=== PATIENT | male | born 1985 | race Caucasian/White ===

== ENCOUNTER 2023-04-12 11:23 | Outpatient (REF) | payer SELFPAY ==
[2023-04-12 14:13] LABS: Alanine Aminotransferase 35 U/L (0-40); Albumin Level 4.5 g/dL (3.5-5.0); Alkaline Phosphatase 77 U/L (39-117); Anion Gap 17 (12-20); Aspartate Amino Transferase 42 U/L (5-37); Bilirubin Total 0.6 mg/dL (0.0-1.0); Blood Urea Nitrogen 9 mg/dL (9-16); Calcium 8.8 mg/dL (8.4-10.2); Carbon Dioxide 22 mmol/L (22-29); Chloride 101 mmol/L (96-108); Cholesterol 244 mg/dL; Estimated Glomerular Filt Rate > 60; Glucose Random 96 mg/dL (60-115); HDL Cholesterol 116 mg/dL; LDL Cholesterol Calculated 107 mg/dl; Potassium 4.4 mmol/L (3.3-5.1); Sodium 136 mmol/L (135-145); Total Protein 7.9 g/dL (6.5-8.0); Triglycerides 105 mg/dL
[2023-04-12 17:44] LABS: CT PCR NOT DETECTED (Not Detect.); NG PCR NOT DETECTED (Not Detect.)
[2023-04-13 07:46] LABS: Syphilis Screen Nonreactive (Nonreactive)
[2023-04-13 08:46] LABS: HBc Num1 0.09 S/CO (0.00-0.79); HBsAGNum1 0.28 S/CO (0.00-0.99); HIV AB/AG Nonreactive (Nonreactive); HIV Num 1 0.05 S/CO (0.00-0.99); Hepatitis A Antibody IgM 0.35 Index (0-0.79); Hepatitis B Core Antibody Nonreactive (Nonreactive); Hepatitis B Surface Antigen Negative (Negative); ~HepC Num1 0.06 S/CO (0.00-0.79); ~Hepatitis A Antibody IgM Nonreactive (Nonreactive); ~Hepatitis B Surface Antibody REACTIVE (Nonreactive); ~Hepatitis C Antibody Nonreactive (Nonreactive)
== END 2023-04-12 11:24 | disposition home or self-care (01) ==
LOC: HO.HHCL 11:23
PROVIDERS: Visit Provider Registered Nurse
DX: I10 Essential (primary) hypertension (principal); Z20.2 Contact with and (suspected) exposure to infections with a predominantly sexual mode of transmission
CPT/HCPCS: 0353U; 80053; 80061; 86704; 86706; 86709; 86780; 86803; 87340; 87389

== ENCOUNTER 2024-10-27 15:19 | Outpatient (REF) | payer SELFPAY ==
--- OUTSIDE RECORDS SUMMARY | 2024-10-27 16:20 | XMS_ITS | Encounter Summary ---
Author Organization [employer] Address [address] [facility] 7t [place] [address] Care Team Providers Care Receiving Manager Name Role Phone [facility] Primary Care Provider [phone] Reason for Visit * Reason Comments Med Refill Encounter Details Date Type Department Care Team (Late st Contact Info) Description 05/23/2023 Refill [facility] MEDICINE [address] [place] [phone] [phone] Recurrent major depressive disorder, remission status unspecified (CMS/HCC) Social History Tobacco Use Types Packs/Day Years Used Date Smoking Tobacco: Never Passive Smoke Exposure: Never Smokeless Tobacco: Never Alcohol Use Standard Drinks/Week Comments Yes 84 (1 standard drink = 0.6 oz pu re alcohol) Sex and Gender Information Value Date Recorded Sex Assigned at Male 07/17/2022 10:38 AM EDT Legal Sex Male 10:38 AM EDT Gender Identity Male 07/17/2022 10:38 AM EDT Sexual Orientation Straight 07/17/2022 10 :38 AM EDT documented as of this encounter Plan of Treatment Upcoming Encounters Date Type Department Care Team (Late st Contact Info) Description 11/11/2024 3:30 PM EST Clinical Support [facility] MEDICINE [address] [place] [address] [phone] documented as of this encounter Visit Diagnoses Diagnosis Recurrent major depressive disorder, remission status unspecified (CMS/HCC) documented in this encounter Additional Health Concerns Assessment Noted Time PHQ-9 Depression Total Score: 0 04/12/ 23 10:33 AM EDT documented as of this encounter Care Teams Receiving Manager Relationship Specialty Start Date End Date [facility], [place] [address] [place] [address] PCP - General Family Medicine 05/17/22 documented as of this encounter
--- OUTSIDE RECORDS SUMMARY | 2024-10-27 16:20 | XMS_ITS | Clinical Summary ---
Author Organization [employer] Address [address] [facility] 7t [place] [address] Care Team Providers Care Ramp Service Employee Name Role Phone Minda Amanda [employer] Primary Care Provider [phone] Allergies No known active allergies Medications naproxen (Naprosyn) 500 MG tabletIndicatio ns:Rib pain on right side TAKE 1 TABLET BY MOUTH TWICE A DAY 60 tablet 01/30/20 23 Active Multiple Vitamin (Multivitamin Adult) tabletIndicatio ns:Alcohol use disorder Take 1 tablet by oral route daily 90 tablet 3 02/21/20 23 Active FLUoxetine (PROzac) 20 MG tabletIndicatio ns:Recurrent major depressive disorder, remission status unspecified (CMS/HCC) Take 1 tablet (20 mg) by mouth Once per day. 90 tablet 3 10/27/19 25 026 Active olmesartan (Benicar) 20 MG tabletIndicatio ns:Primary hypertension Take 1 tablet (20 mg) by mouth Once per day. 90 tablet 3 10/27/19 25 026 Active sildenafil (Viagra) 50 MG tabletIndicatio ns:Alcohol use disorder Take 1 tablet 1 hour before sexual relations once daily as needed 30 tablet 3 10/27/19 25 Active olmesartan (Benicar) 5 MG tabletIndicatio ns:Primary hypertension Take 2 tablets (10 mg) by mouth Once per day. 180 tablet 3 04/25/20 24 025 Discontinued FLUoxetine (PROzac) 20 MG tabletIndicatio ns:Recurrent major depressive disorder, remission status unspecified (CMS/HCC) Take 1 tablet (20 mg) by mouth Once per day. 90 tablet 3 04/25/20 24 025 Discontinued(Re order (will not trigger notification to Pharmacy)) sildenafil (Viagra) 50 MG tabletIndicatio ns:Alcohol use disorder Take 1 tablet 1 hour before sexual relations once daily as needed 30 tablet 3 04/25/20 24 025 Discontinued(Re order (will not trigger notification to Pharmacy)) olmesartan (Benicar) 20 MG tabletIndicatio ns:Primary hypertension Take 1 tablet (20 mg) by mouth Once per day. 30 tablet 11 05/21/20 24 025 Discontinued olmesartan (Benicar) 20 MG tabletIndicatio ns:Primary hypertension Take 1 tablet (20 mg) by mouth Once per day. 90 tablet 3 10/27/19 25 025 Discontinued(Re order (will not trigger notification to Pharmacy)) Active Problems Problem Noted Date Diagnosed Date Healthcare maintenance 06/01/2023 Overview (06/01/2023): Declines flu vaccine Accepts Td booster Other male erectile dysfunction 02/21/2023 Overview (02/21/2023): ?? PRN sildenafil Assessment & Plan (02/21/2023 10:17 AM EDT): Refill provided Plan to discuss further hx of ED at follow up Major depressive disorder 02/21/2023 Overview (06/01/2023): ?? On waiting list with [facility] for therapy ?? Previously tried wellbutrin without improvement ?? Fluoxetine 40mg daily Assessment & Plan (06/01/2023 5:12 AM EDT): ?? Doing well ?? Denies SI or thoughts of self harm ?? Continue current regimen ?? Contact HC if sx worsen or experiencing thoughts of SI or self harm. Pt has [facility] crisis contact information ?? Assessment & Plan (04/22/2023 10:50 PM EDT): ?? INCREASE fluoxetine to 40mg daily ?? Patient will contact [facility] re status on therapist ?? Denies SI or thoughts of self harm Assessment & Plan (02/21/2023 10:18 AM EDT): ?? START fluoxetine 20mg daily. Reviewed administration, risks, side effects ?? Follow up with N for therapy as scheduled ?? Contact HC if sx worsen Chewing tobacco nicotine dependence 02/21/2023 Overview (02/21/2023): ?? Since age 22 ?? Followed by dental regularly Assessment & Plan (06/01/2023 5:13 AM EDT): ?? Encouraged cessation Alcohol use disorder 02/21/2023 Overview (02/21/2023): ?? 10 beers/day ?? Declines referral to AUD tx Assessment & Plan (06/01/2023 5:13 AM EDT): ?? 3/10 readiness to change ?? Will continue to engage in motivational interviewing Assessment & Plan (02/21/2023 10:18 AM EDT): ?? START thiamine/folic acid/multivitamin supplement ?? Will continue to monitor Primary hypertension 02/21/2023 Overview (06/01/2023): Olmesartan 5mg daily Maintenance: BMP: 03/2023 Lipid Panel: 03/2023 Calculate ASCVD risk at follow up EKG: Obtain baseline at f/u - Aerobic exercise to reduce BP. Initial goal of 30 min walk 3-5x/week. Increase as tolerated. - low-sodium diet (goal: <2g/day) and heart healthy diet such as DASH to reduce BP and prevent ASCVD. - Home BP monitoring 1-2 x day with goal of <140/90. - Seek immediate medical attention for chest pain, palpitations, SOB, syncope, or sudden changes in mental status. - Do not change or discontinue current prescriptions without first consulting health care provider Assessment & Plan (06/01/2023 5:15 AM EDT): ?? BP elevated ?? INCREASE olmesartan to 10mg daily ?? RN BP check 2 weeks Assessment & Plan (04/22/2023 10:49 PM EDT): ?? Did not complete labs ?? Home BP with mild elevation. Plan to INCREASE olmesartan to 10mg daily once patient has completed labs to check renal function Assessment & Plan (02/21/2023 10:20 AM EDT): ?? START olmesartan 5mg daily. Reviewed administration, risks, side effects ?? RN BP check 2 weeks ?? Complete previously ordered labs Encounters Date Type Department Care Team Description 10/27/2024 2:30 PM EST Office Visit [facility] MEDICINE [address] [place] [id number] Minda Amanda FNP Primary hypertension; Recurrent major depressive disorder, remission status unspecified (CMS/[facility]); Alcohol use disorder 10/27/2024 Travel 10/15/[address] [facility] [address] [place] [address] Minda Amanda FNP Pre-visit Planning (SDOH screening negative and tobacco screening negative) from Last 3 Months Immunizations Name Administration Dates Next Due Tdap 05/30/2023 Family History Medical History Relation Name Comments Colon cancer Neg Hx Prostate cancer Neg Hx Social History Tobacco Use Types Packs/Day Years Used Date Smoking Tobacco: Never Passive Smoke Exposure: Never Smokeless Tobacco: Never Tobacco Cessation:Counseling Given: Not Answered Alcohol Use Standard Drinks/Week Comments Yes 84 (1 standard drink = 0.6 oz pu re alcohol) Depression Answer Date Recorded Patient Health Questionnaire-9 Score 0 10/27/2024 Patient Health Questionnaire-9 Score 0 10/27/2024 Last PHQ-9: Questionnaire Data Not on file 0 10/27/2024 Housing Stability Answer Date Recorded What is your housing situation today? I have jonathan lofton 07/04/[address] you li ve. Do you have problems with any of the following? None of the above 07/04/2023 Food Insecurity Answer Date Recorded Within the past 12 months, y ou worried that your food would run out before you got money to buy more: Never True 07/04/2023 Within the past 12 months,th e food you bought just didn't last and you didn't have enough money to get more: Never True Transportation Answer Date Recorded In the past 12 months, has l ack of transportation kept you from medical appts, meetings, work or from getting things needed for daily living? No 07/04/2023 Utilities Answer Date Recorded In the past 12 months, has t he electric, gas, oil or water company threatened to shut off services in your home? No 07/04/2023 Depression Answer Date Recorded Patient Health Questionnaire-2 Score 0 10/27/2024 Internet Access Answer Date Recorded Internet Access Q1 Yes 05/19/2024 Internet Access Q2 Not on file 05/19/2024 Sex and Gender Information Value Date Recorded Sex Assigned at Male 07/17/2022 10:38 AM EDT Legal Sex Male 10:38 AM EDT Gender Identity Male 07/17/2022 10:38 AM EDT Sexual Orientation Straight 07/17/2022 10 :38 AM EDT Last Filed Vital Signs Vital Sign Reading Time Taken Comments Blood Pressure 150/90 10/27/2024 2:58 PM EST Pulse 96 10/27/2024 2:42 PM EST Temperature 36.5 ??C (97.7 ??F) 10/27/2024 2:42 PM ES T Respiratory Rate 18 10/27/2024 2:42 PM EST Oxygen Saturation 98% 05/15/2024 3:59 PM EDT Inhaled Oxygen Concentration - - Weight 90.2 kg (198 lb 12.8 oz) 10/27/2024 2:42 PM EST Height 185.4 cm (6' 1 ) 10/27/2024 2:42 PM EST Body Mass Index 26.23 10/27/2024 2:42 PM EST Plan of Treatment Upcoming Encounters Date Type Department Care Team (Late st Contact Info) Description 11/11/2024 3:30 PM EST Clinical Support [facility] [address] [place], [place] [phone] Health Maintenance Due Date Last Done Comments Alcohol/Substance Use Screening 1999 Family Planning (PISQ) 2002 Hepatitis B Vaccines (1 of 3 - 19+ 3-dose series) 2006 Pneumococcal Vaccine: Pediatrics (0 to 5 Years) and At-Risk Patients (6 to 49) Years) (1 of 2 - PCV) 2006 COVID-19 Vaccine (1 - 2024-2 5 season) 2024 Influenza Vaccine (#1) 2024 SDOH Screening 10/15/2025 10/15/2024 Depression Screening 10/27/2025 10/27/2024, 10/27/2024 Tobacco Screening 10/27/2025 10/27/2024 Lipid Panel 04/12/2028 04/12/2023, 07/18/2021 DTaP/Tdap/Td Vaccines (2 - T d or Tdap) 05/30/2033 05/30/2023 Zoster Vaccines (1 of 2) 2037 RSV Patients and Patients Aged 60 years or older (1 - 1-dose 75+ series) 2062 HIV Screening Completed 04/12/2023, 07/18/2021 Hepatitis C Screening Completed 04/12/2023 , 07/18/2021 HIB Vaccines Aged Out No longer eligi ble based on patient's age to complete this topic HPV Vaccines Aged Out No longer eligi ble based on patient's age to complete this topic Hepatitis A Vaccines Aged Out No long er eligible based on patient's age to complete this topic IPV Vaccines Aged Out No longer eligi ble based on patient's age to complete this topic Meningococcal Vaccine Aged Out No tanner sajan eligible based on patient's age to complete this topic RSV under 20 months Aged Out No longe r eligible based on patient's age to complete this topic Rotavirus Vaccines Aged Out No longer eligible based on patient's age to complete this topic Procedures Procedure Name Priority Date/Time Associated Diagnosis Comments HEPATITIS PANEL, GENERAL Routine 04/12/2023 11:33 AM EDT Routine screening for STI (sexually transmitted infection) HIV ANTIBODY/ANTIGEN ([place] DPH) Routine 04/12/2023 11:33 AM EDT LIPID PANEL, STANDARD Routine 04/12/2023 11:33 AM EDT Primary hypertension from Last 3 Months or Most Recently Relevant to Health Maintenance Results * HIV Ab/Ag ([place] DPH) (04/12/2023 11:33 AM EDT) HIV AB/AG Nonreactive Nonreactive [facility] Comment:HIV-1 p24 Ag and/or HIV-1/HIV-2 Ab not detected.A test result that is nonreactive does not exclude thepossibility of exposure to or infection with HIV-1 and/orHIV-2. Nonreactive results in this assay for individualswith prior exposure to HIV-1 and/or HIV-2 may be due toantigen and antibody levels that are below the limit ofdetection of this assay.The [employer] HIV Ag/Ab Combo assay result andsupplemental assay results should be interpreted inconjunction with the patient's clinical presentation,history and other laboratory results. If the results areinconsistent with clinical evidence, additional testing issuggested to confirm the result. 04/12/2023 11:3 3 AM EDT 04/12/2023 1:29 PM EDT [facility] BLOOD ORDERABLES Final Re sult Performing Organization Address [facility] de Phone Number [facility] [address] [place] [phone] * Hepatitis Panel, General (04/12/2023 11:33 AM EDT) Hepatitis A IgM Nonreactive Nonreactive [facility] Comment:IgM antibodies to WALSH V not detected; does not exclude earlyacute or recovered HAV infection. ~Hepatitis B Surface Antibody REACTIVE Nonreactive [facility] Comment:REACTIVE: > 11.99 mI U/mL Hepatitis B Core Antibody Nonreactive Nonreactive [facility] Hepatitis C Antibody Nonreactive Nonreactive [facility] Comment:Antibodies to HCV no t detected; does not exclude early acuteHCV infection. Hepatitis B Surface Ag Negative Negative [facility] Blood 04/12/2023 11:3 3 AM EDT 04/12/2023 1:29 PM EDT [facility] BLOOD ORDERABLES Final Re sult Performing Organization Address [facility] Co de Phone Number [facility] [address] [place] [address] [place] [phone] * Lipid Panel, Standard (04/12/2023 11:33 AM EDT) Triglycerides 105 mg/dL [facility] Comment:Desirable Triglyceri de: less than 150 mg/dLBorderline High Triglyceride 150-199 mg/dLHigh Triglyceride: 200-499 mg/dLVery High Triglyceride: greater than or equal to 5OO mg/dL Cholesterol 244 mg/dL [facility] Comment:Desirable Cholestero l: less than 200 mg/dLBorderline High Cholesterol: 200-239 mg/dLHigh Cholesterol: greater than 239 mg/dL LDL Cholesterol Calculated 107 mg/dl [facility] Comment:Desirable LDL: less than 100 mg/dLNear Optimal/Above Optimal LDL: 110- 129 mg/dLBorderline High LDL: 130-159 mg/dLHigh LDL: 160-189 mg/dLVery High LDL: greater than or equal to 190 mg/dL HDL Cholesterol 116 mg/dL [facility] Comment:Desirable HDL: great er than 40 mg/dL Note: This HDL assay may give artificially low results in patients with liver disease. Blood Venous blood specimen / Unknown 04/12/2023 11:33 AM EDT 04/12/2023 1:29 PM EDT [facility] [employer] LAB BLOOD ORDERABLES Final Re sult [facility] [address] [place] [address] [phone] from Last 3 Months or Most Recently Relevant to Health Maintenance Insurance [facility] PPO Care Teams Ramp Service Employee Relationship Specialty Start Date End Date Minda Amanda FNP [address] [place] [phone] PCP - General Family Medicine 05/17/22
--- OUTSIDE RECORDS SUMMARY | 2024-10-27 16:20 | XMS_ITS | Encounter Summary ---
Author Organization [employer] Address [address] [facility] 7t [place] [address] Care Team Providers Care Director Machine Name Role Phone [facility] Primary Care Provider [phone] Reason for Visit * Reason Comments Follow-up Encounter Details Date Type Department Care Team ([facility] st Contact Info) Description 10/27/2024 2:30 PM EST Office Visit [facility] [address] [place], [place] [phone] [facility] [address] [place], [place] [phone] Primary hypertension; Recurrent major depressive disorder, remission status unspecified (CMS/HCC); Alcohol use disorder Social History Tobacco Use Types Packs/Day Years [...] AM EDT documented as of this encounter Last Filed Vital Signs Vital Sign Reading Time Taken Comments Blood Pressure 150/90 10/27/2024 2:58 PM EST Pulse 96 10/27/2024 2:42 PM EST Temperature 36.5 ??C (97.7 ??F) 10/27/2024 2:42 PM ES T Respiratory Rate 18 10/27/2024 2:42 PM EST Oxygen Saturation - - Inhaled Oxygen Concentration - - Weight 90.2 kg (198 lb 12.8 oz) 10/27/2024 2:42 PM EST Height 185.4 cm (6' 1 ) 10/27/2024 2:42 PM EST Body Mass Index 26.23 10/27/2024 2:42 PM EST documented in this encounter Plan of Treatment Upcoming Encounters Date Type Department Care Team (Late st Contact Info) Description 11/11/2024 3:30 PM EST Clinical Support [facility] [address] [place] [address] Scheduled Orders Name Type Priority Associated Diagnoses Orde r Schedule Comprehensive Metabolic Panel Lab Routine Primary hypertension Expected: 10/27/2024 (Approximate), Expires: 10/27/2025 Lipid Panel, Standard Lab Routine Primary hypertension Expected: 10/27/2024 (Approximate), Expires: 10/27/2025 documented as of this encounter Visit Diagnoses Diagnosis Primary hypertension Unspecified essential hypertension Recurrent major depressive disorder, remission status unspecified (CMS/HCC) Alcohol use disorder documented in this encounter Additional Health Concerns Assessment Noted Time PHQ-9 Depression Total Score: 0 10/27/19 25 2:43 PM EST documented as of this encounter Care Teams Director Machine Relationship Specialty Start Date End Date Minda Amanda FNP [address] [place] [phone] PCP - General Family Medicine 05/17/22 documented as of this encounter
--- OUTSIDE RECORDS SUMMARY | 2024-10-27 16:20 | XMS_ITS | Encounter Summary ---
Author Organization [employer] Address [address] 7[address] [place] [address] Care Team Providers Care Lead Printer Name Role Phone Minda Amanda [facility] Primary Care Provider [phone] Encounter Details Date Type Department Care Team (Latest Contact Info) Description 10/27/2024 Travel Social History Tobacco Use Types Packs/Day Years [...] Description 11/11/2024 3:30 PM EST Clinical Support [facility] [address] [place] [address] documented as of this encounter Visit Diagnoses Not on filedocumented in this encounter Additional Health Concerns Assessment Noted Time PHQ-9 Depression Total Score: 0 10/27/19 25 2:43 PM EST documented as of this encounter Care Teams Lead Printer Relationship Specialty Start Date End Date Minda Amanda FNP [address] [place] [address] PCP - General Family Medicine 05/17/22 documented as of this encounter
--- OUTSIDE RECORDS SUMMARY | 2024-10-27 16:20 | XMS_ITS | Encounter Summary ---
Author Organization [employer] Address [address] [facility] 7t [place] [address] Care Team Providers Care Boiler Shop Mechanic Name Role Phone [facility] Primary Care Provider [phone] Reason for Visit * Reason Comments Med Refill Encounter Details Date Type Department Care Team (Late st Contact Info) Description 04/29/2023 Refill [facility] MEDICINE [address] [place] [phone] [phone] Recurrent major depressive disorder, remission status unspecified [...] Description 11/11/2024 3:30 PM EST Clinical Support [facility] MEDICINE [address] [place] [address] [phone] documented as of this encounter Visit Diagnoses Diagnosis Recurrent major depressive disorder, remission status unspecified (CMS/HCC) documented in this encounter Additional Health Concerns Assessment Noted Time PHQ-9 Depression Total Score: 0 04/12/ 23 10:33 AM EDT documented as of this encounter Care Teams Boiler Shop Mechanic Relationship Specialty Start Date End Date [facility] [place] [address] [place] [address] PCP - General Family Medicine 05/17/22 documented as of this encounter
--- OUTSIDE RECORDS SUMMARY | 2024-10-27 16:20 | XMS_ITS | Encounter Summary ---
Author Organization [employer] Address [address] [facility] 7t [place] [address] Care Team Providers Care Open Hearth Stockyard Supervisor Name Role Phone [facility] Primary Care Provider [phone] Reason for Visit * Reason Comments Pre-visit Planning SDOH screening negat cristel and tobacco screening negative Encounter Details Date Type Department Care Team ([facility] st Contact Info) Description 10/15/2024 Patient Outreach [facility] [address] [place], [place] [phone] [facility] [address] [place], [place] [phone] Pre-visit Planning (SDOH screening negative and tobacco screening negative) Social History Tobacco Use Types Packs/Day Years Used Date Smoking Tobacco: Never Passive Smoke Exposure: Never Smokeless Tobacco: Never Alcohol Use Standard Drinks/Week Comments Yes 84 (1 standard drink = 0.6 oz pu re alcohol) Depression Answer Date Recorded Patient Health Questionnaire-9 Score 4 04/25/2024 Patient Health Questionnaire-9 Score 4 04/25/2024 Last PHQ-9: Questionnaire Data Not on file 0 04/25/2024 Housing Stability Answer Date Recorded What is [...] Date Recorded Patient Health Questionnaire-2 Score 0 04/25/2024 Internet Access Answer Date Recorded Internet Access Q1 Yes 05/19/2024 Internet Access Q2 Not on file 05/19/2024 Sex and Gender Information Value Date Recorded Sex Assigned at Male 07/17/2022 10:38 AM EDT Legal Sex Male 10:38 AM EDT Gender Identity Male 07/17/2022 10:38 AM EDT Sexual Orientation Straight 07/17/2022 10 :38 AM EDT documented as of this encounter Progress Notes * Magy Corral - 10/15/2024 2:17 PM EST CC Magy placed successful outbound call to patient for pre-visit planning. Patient name and confirmed. Patient confirms appt date and time, and has transportation. Biggest concern for appointment at this time is none Patient advised to bring to appointment a photo id and insurance card. Appropriate screenings completed in anticipation of appointment. documented in this encounter Plan of Treatment Upcoming Encounters Date Type Department Care Team (Late st Contact Info) Description 11/11/2024 3:30 PM EST Clinical Support [facility] [address] [place] [address] documented as of this encounter Visit Diagnoses Not on filedocumented in this encounter Additional Health Concerns Assessment Noted Time PHQ-9 Depression Total Score: 4 04/25/20 24 3:08 PM EDT documented as of this encounter Care Teams Open Hearth Stockyard Supervisor Relationship Specialty Start Date End Date Minda Amanda FNP [address] [place] [address] PCP - General Family Medicine 05/17/22 documented as of this encounter
--- OUTSIDE RECORDS SUMMARY | 2024-10-27 16:20 | XMS_ITS | Encounter Summary ---
Author Organization [employer] Address [address] [place] [address] Care Team Providers Care Database Programmer Name Role Phone [place] [facility] Primary Care Provider [phone] Reason for Visit * Reason Comments Med Refill Encounter Details Date Type Department Care Team (Late Contact Info) Description 03/20/2023 Refill [facility] [address] [place] [phone] [facility] [address] [place] [place], [place] [phone] Primary hypertension Social History Tobacco Use Types Packs/Day Years [...] Orientation Straight 07/17/2022 10 :38 AM EDT COVID-19 Exposure Response Date Recorded In the last 10 days, have yo u been in contact with someone who was confirmed or suspected to have Coronavirus/COVID-19? No / Unsure 02/20/2023 9:15 AM EDT documented as of this encounter Plan of Treatment Upcoming Encounters Date Type Department Care Team (Late st Contact Info) Description 11/11/2024 3:30 PM EST Clinical Support [facility] [address] [place] [address] [phone] documented as of this encounter Visit Diagnoses Diagnosis Primary hypertension Unspecified essential hypertension documented in this encounter Additional Health Concerns Assessment Noted Time PHQ-9 Depression Total Score: 4 02/21/20 23 9:38 AM EDT documented as of this encounter Care Teams Database Programmer Relationship Specialty Start Date End Date Minda Amanda FNP [address] [place] [id number] PCP - General Family Medicine 05/17/22 documented as of this encounter
[2024-10-27 16:30] LABS: Alanine Aminotransferase 98 U/L (0-40); Albumin Level 4.5 g/dL (3.5-5.0); Alkaline Phosphatase 68 U/L (39-117); Anion Gap 13 (12-20); Aspartate Amino Transferase 120 U/L (5-37); Bilirubin Total 0.6 mg/dL (0.0-1.0); Blood Urea Nitrogen 8 mg/dL (9-16); Carbon Dioxide 25 mmol/L (22-29); Chloride 100 mmol/L (96-108); Cholesterol 277 mg/dL (<200); Estimated Glomerular Filt Rate > 60; Glucose Random 99 mg/dL (60-115); HDL Cholesterol 152 mg/dL (>40); LDL Cholesterol Calculated 94 mg/dL (<100); Potassium 3.9 mmol/L (3.3-5.1); Sodium 134 mmol/L (135-145); Triglycerides 157 mg/dL (<150)
== END 2024-10-27 15:20 | disposition home or self-care (01) ==
LOC: HO.HHCL 15:19
PROVIDERS: Visit Provider Registered Nurse
DX: I10 Essential (primary) hypertension (principal)
CPT/HCPCS: 36415; 80053; 80061